=== PATIENT | male | born 1960 | race Caucasian/White ===

== ENCOUNTER 2017-11-16 14:05 | Emergency (ER) | payer BC, OTHER ==
[2017-11-16] MEDS ORDERED: chlordiazePOXIDE 25 MG CAP PO ONE ×2 (14:29→15:13)
--- NOTE | 2017-11-16 14:33 | EDPHY ---
H & P Stated Complaint: wants helps detoxing from etoh, last drink 1 week ago, hallucinating Source: Patient Exam Limitations: No limitations - Medical/Surgical History Hx Asthma: No Hx Chronic Respiratory Disease: No Hx Diabetes: No Hx Cardiac Disease: No Hx Renal Disease: No Hx Cirrhosis: No Hx Alcoholism: No Hx HIV/AIDS: No Hx Splenectomy or Spleen Trauma: No Other PMH: ETOH - Family History Significant Family History: No pertinent family hx - Social History Smoking Status: Never smoked Alcohol Use: Heavy Drug Use: None Time Seen by Provider: 11/16/17 14:22 HPI/ROS: CHIEF COMPLAINT: Alcohol withdrawal HISTORY OF PRESENT ILLNESS: Patient is a 57-year-old man who comes to the emergency department complaining of hallucinations. He states that he stopped drinking 1 week ago. The 1st few days he was vomiting but that seems to have improved. Now he is slightly tremulous and earlier today he thought there were people in his house. He called 911 but when they arrived no one was there. They wanted to bring him to the ER but is family came and brought him instead. He has not had any seizures. No trauma. No chest pain or shortness of breath. REVIEW OF SYSTEMS: Constitutional: denies: chills, fever, recent illness, recent injury EENTM: denies: blurred vision, double vision, nose congestion Respiratory: denies: cough, shortness of breath Cardiac: denies: chest pain, irregular heart rate, lightheadedness, palpitations Gastrointestinal/Abdominal: denies: abdominal pain, diarrhea, nausea, vomiting, blood streaked stools Genitourinary: denies: dysuria, frequency, hematuria, pain Musculoskeletal: denies: joint pain, muscle pain Skin: denies: lesions, rash, jaundice, bruising Neurological: See HPI denies: headache, numbness, paresthesia, tingling, dizziness, weakness Hematologic/Lymphatic: denies: blood clots, easy bleeding, easy bruising Immunologic/allergic: denies: HIV/AIDS, transplant EXAM: GENERAL: Well-appearing, well-nourished and in no acute distress. HEAD: Atraumatic, normocephalic. EYES: Pupils equal round and reactive to light, extraocular movements intact, sclera slightly icteric, conjunctiva are normal. ENT: TMs normal, nares patent, oropharynx clear without exudates. Moist mucous membranes. NECK: Normal range of motion, supple without lymphadenopathy or JVD. LUNGS: Breath sounds clear to auscultation bilaterally and equal. No wheezes rales or rhonchi. HEART: Not tachycardic, Regular rate and rhythm without murmurs, rubs or gallops. ABDOMEN: Soft, nontender, normoactive bowel sounds. No guarding, no rebound. No masses appreciated. BACK: No CVA tenderness, no spinal tenderness, step-offs or deformities EXTREMITIES: Very mild tremors with extension Normal range of motion, no pitting or edema. No clubbing or cyanosis. NEUROLOGICAL: Cranial nerves II through XII grossly intact. Normal speech, normal gait. 5/5 strength, normal movement in all extremities, normal sensation PSYCH: Normal mood, normal affect. Normal cognition currently SKIN: Warm, dry, normal turgor, no visible rashes or lesions. (Caio Holliday) Constitutional: Initial Vital Signs Temperature (C) 36.7 C 11/16/17 14:08 Heart Rate 80 11/16/17 14:08 Respiratory Rate 18 11/16/17 14:08 Blood Pressure 146/73 H 11/16/17 14:08 O2 Sat (%) 94 11/16/17 14:08 O2 Delivery Mode Room Air Allergies/Adverse Reactions: No Known Allergies Allergy (Unverified 11/16/17 14:08) Home Medications: Medication Instructions Recorded NK [No Known Home Meds] 11/16/17 Medical Decision Making ED Course/Re-evaluation: The patient is slightly jaundiced and the appears to have some ascites. He has no tenderness. This is likely chronic. He has mild tremors and apparently was having some hallucinations earlier today. He is now acting normally and has stable vital signs. I will treat him with Librium and plan to discharge to the arc. Family agrees with this plan. 2:45 p.m. Care transferred to Dr. Christiano Clarke. Expect the patient will do well with Librium and be able to go to the arc. (Caio Holliday) Differential Diagnosis: Partial list of the Differential diagnosis considered include but were not limited to; alcoholism, withdrawal, delirium tremens and although unlikely based on the history and physical exam, I also considered head injury, infection. I discussed these differential diagnoses and the plan with the patient as well as the usual and expected course. The patient understands that the diagnosis is provisional and that in medicine we are not always correct and that further workup is often warranted. Usual and customary warnings were given. All of the patient's questions were answered. The patient was instructed to return to the emergency department should the symptoms at all worsen or return, otherwise to followup with the physician as we discussed. ( Caio Holliday) - Data Points Medications Given: Discontinued Medications Chlordiazepoxide (Librium 25 Mg Prepack#6) 1 btl TAKEHOME EDNOW ONE Stop: 11/16/17 14:35 Last Admin: 11/16/17 15:23 Dose: 1 btl Chlordiazepoxide HCl (Librium) 50 mg PO EDNOW ONE Stop: 11/16/17 14:30 Last Admin: 11/16/17 14:36 Dose: 50 mg Chlordiazepoxide HCl (Librium) 25 mg PO EDNOW ONE Stop: 11/16/17 15:14 Last Admin: 11/16/17 15:23 Dose: 25 mg Departure - Departure Disposition: Home, Routine, Self-Care Clinical Impression: Alcohol withdrawal Qualifiers: Complication of substance-induced condition: with perceptual disturbance Qualified Code(s): F10.232 - Alcohol dependence with withdrawal with perceptual disturbance Condition: Fair Instructions: Chlordiazepoxide (By mouth), Alcohol Withdrawal (ED) Referrals: Manny Forte MD [[facility] [place] Primary Care Provider] - As per Instructions NONE *PRIMARY CARE P,. [Primary Care Provider] - As per Instructions [facility] Detox 24 Hours [Outside] - As per Instructions
[2017-11-16] MEDS ORDERED: CHLORDIAZEPOXIDE 25MG PREPK#6 BTL TAKEHOME ONE (14:34)
[2017-11-16 15:17] VITALS: BP 147/79
== END 2017-11-16 15:43 | disposition home or self-care (01) ==
DX: F10.232 Alcohol dependence with withdrawal with perceptual disturbance (principal)